=== PATIENT | male | born 1995 | race Hispanic/Latino ===

== ENCOUNTER 2020-03-07 13:16 | Emergency (ER) | payer SELFPAY ==
[2020-03-07 13:17] VITALS: BP 145/91; PULSE 109; RESP 16; TEMP 36.9; O2SAT 100; BMI 29.2
--- NOTE | 2020-03-07 13:19 | US_ITS ---
STUDY: SCROTUM ULTRASOUND REASON FOR EXAM: Male, 24 years old. LEFT TESTICULAR LUMP TECHNIQUE: Ultrasound evaluation of the scrotum was performed with color Doppler and static chapman-scale imaging. COMPARISON: None. FINDINGS: RIGHT TESTICLE INTRATESTICULAR: There is a normal size of the right testicle. The right testicle measures 4.6 x 3.0 x 2.7 cm. There is a homogenous echotexture. Incidental microlithiasis. There is normal arterial and normal venous vascularity. There is no demonstrated right testicular mass or cyst. EXTRATESTICULAR: The epididymis is normal in size. The epididymis head measures 1.0 cm. There is normal vascularity of the epididymis. 2 separate epididymal cysts are seen measuring 4 mm and 7 mm. There is no demonstrated hydrocele. There is no demonstrated varicocele. There is no demonstrated extratesticular mass or cyst. LEFT TESTICLE INTRATESTICULAR: There is a normal size of the left testicle. The left testicle measures 4.9 x 2.9 x 2.5 cm. There is a homogenous echotexture. Incidental microlithiasis. There is normal arterial and normal venous vascularity. There is no demonstrated left testicular mass or cyst. EXTRATESTICULAR: The epididymis is enlarged. The epididymis head measures 2.8 cm. There is normal vascularity of the epididymis. There is a cystic structure within the epididymis, with low level echoes, consistent with a spermatocele. Probably accounting for the palpable abnormality. There is no demonstrated hydrocele. There is no demonstrated varicocele. There is no demonstrated extratesticular mass or cyst. US/Testicular with Arterial Flow IMPRESSION: Normal bilateral testicles. 2.8 cm left spermatocele. Electronically Signed: Dharmesh Johnson MD at 15:23 EST , Service support ,
--- NOTE | 2020-03-07 15:41 | ED.DCSUM_ITS ---
- ER Visit Summary Date of Service: 03/07/20 Chief Complaint: Left testicular mass History of Present Illness: The patient is a 24 M with no primary care physician. He reports that he has a mass on his left testicle that has been present for approximately 2 years. Increased approximately 3 months ago. He denies any pain. He is sexually active. He is in a monogamous relationship with a woman for the past year. He does have unprotected intercourse. He denies any dysuria, frequency, or penile discharge. Physical Examination: Vitals: Stable. Afebrile. General: Well-nourished and well-developed. Head: Normocephalic atraumatic. Neck: Supple, no lymphadenopathy. No JVD. Nontender. Cardiovascular: Regular rate and rhythm. No murmurs. Respiratory: No respiratory distress. Clear to auscultation bilaterally. Abdominal: Soft, nontender, nondistended, normal bowel sounds. No guarding, rebound, or peritoneal signs. : Normal circumcised male. There is no mass on his testicle itself. He does have a mass in the left epididymal region. It is nontender. There are no her nias. Back: Nontender. Extremities: Nontender, no edema. Skin: Normal color, no rash. Neurologic: Alert and oriented ?3. Cranial nerves II through XII are intact. Normal strength and sensation. Psych: Normal affect. Test Results: Clinical Impression(s) from Imaging Studies Testicular Ultrasound 03/07/20 13:19 IMPRESSION: Normal bilateral testicles. 2.8 cm left spermatocele. Electronically Signed: Dharmesh Johnson MD at 15:23 EST , Service support , Emergency Department Course and Treatment: Patient refused pain medications. He is resting comfortably. Treatment Plan: Had a prolonged discussion with patient about this spermatocele. He is instructed on symptomatic care. Follow-up Dr. Jung as needed. Return to the emergency department for any worsening symptoms. Disposition: To home in improved and stable condition. Impression: 1. Spermatocele on left. This note was generated with [employer] software. It may contain incorrect words, spelling, and punctuation that were not noted in review of the chart prior to signing ED Disposition - Plan for ED Patient: Disposition: Home or Assisted Living Referrals: Julián Jung MD [STAFF PHYSICIAN] - As Needed
== END 2020-03-07 16:01 | disposition home or self-care (01) ==
LOC: ED 15:27
PROVIDERS: Emergency Provider Emergency Medicine
DX: N43.40 Spermatocele of epididymis, unspecified (principal)
CPT/HCPCS: 76870; 93976; 99282